=== PATIENT | male | born 1985 | race Caucasian/White ===

== ENCOUNTER → 2016-12-02 | Outpatient (CLI) | payer OTHER ==
--- NOTE | 2016-12-02 10:32 | RADIOLOGY REPORT (SQ) ---
EXAM DESCRIPTION: CHEST PA/LATERAL COMPLETED DATE/TIME: 12/02/2016 10:13 am REASON FOR STUDY: SHORTNESS OF BREATH COMPARISON: None. EXAM PARAMETERS: NUMBER OF VIEWS: two views TECHNIQUE: Digital Frontal and Lateral radiographic views of the chest acquired. RADIATION DOSE: NA LIMITATIONS: none FINDINGS: LUNGS AND PLEURA: No opacities, masses or pneumothorax. No pleural effusion. MEDIASTINUM AND HILAR STRUCTURES: No masses or contour abnormalities. HEART AND VASCULAR STRUCTURES: Heart normal size. No evidence for failure. BONES: No acute findings. HARDWARE: None in the chest. OTHER: No other significant finding. IMPRESSION: NO SIGNIFICANT RADIOGRAPHIC FINDING IN THE CHEST. TECHNICAL DOCUMENTATION: JOB ID: [id number] [employer] (formerly [employer])- All Rights Reserved
== END ==
LOC: OD 10:04
PROVIDERS: ATTEND Physician Assistant
DX: R06.02 Shortness of breath (principal)
CPT/HCPCS: 71020

== ENCOUNTER 2017-02-20 16:19 | Emergency (ER) | payer OTHER ==
[2017-02-20 16:29] VITALS: BP 135/94
[2017-02-20] MEDS ORDERED: TETRACAINE HCL 0.5% OPH SOLN 2 ML OD ONE (16:45)
[2017-02-20] MEDS ORDERED: KETOROLAC TROMETHAMINE 0.45% 4 DROP/0.4 ML DROPERETTE OD ONE (17:20)
--- NOTE | 2017-02-20 17:23 | ER Document Report ---
HPI - HPI Patient complains to provider of: right eye injury Onset: This morning Onset/Duration: Sudden Pain Level: 3 Context: 31 yo male got debis in right eye when working on ceiling tile at work today. No safety glasses. No contacts. Now hurts. Associated Symptoms: None Exacerbated by: Denies Relieved by: Denies Similar symptoms previously: No Recently seen / treated by doctor: No - ROS ROS below otherwise negative: Yes Systems Reviewed and Negative: Yes All other systems reviewed and negative - EENT EENT: REPORTS: Eye problems Past Medical History - General Information source: Patient - Social History Smoking Status: Never Smoker Chew tobacco use (# tins/day): No Frequency of alcohol use: None Drug Abuse: None Lives with: Family Family History: Reviewed & Not Pertinent Patient has suicidal ideation: No Patient has homicidal ideation: No - Medical History Medical History: Negative Renal/ Medical History: Denies: Hx Peritoneal Dialysis Surgical Hx: Negative Vertical Provider Document - CONSTITUTIONAL Agree With Documented VS: Yes Exam Limitations: No Limitations General Appearance: No Apparent Distress - INFECTION CONTROL TRAVEL OUTSIDE OF THE [place] IN LAST 30 DAYS: No - HEENT HEENT: Normocephalic Notes: No FB, anterior chamber clear, right corneal abrasion lateral to the pupil, tear shaped. - NECK Neck: Supple - RESPIRATORY O2 Sat by Pulse Oximetry: 100 - MUSCULOSKELETAL/EXTREMETIES Musculoskeletal/Extremeties: MAEW - NEURO Level of Consciousness: Awake, Alert - DERM Integumentary: Warm, Dry, No Rash Course - Re-evaluation Re-evalutation: 02/20/17 18:00 [facility] called, they do not have sulfacetamide, changed to polytrim 1 drop qid - Vital Signs Vital signs: Temp Pulse Resp BP Pulse Ox 98.2 F 82 16 135/94 H 100 02/20/17 16:27 02/20/17 16:27 02/20/17 16:27 02/20/17 16:27 02/20/17 16:27 Discharge - Discharge Clinical Impression: Right corneal abrasion Qualifiers: Encounter type: initial encounter Qualified Code(s): S05.01XA - Injury of conjunctiva and corneal abrasion without foreign body, right eye, initial encounter Condition: Good Disposition: HOME, SELF-CARE Instructions: Ketorolac Tromethamine Eye Drops ([facility]), Corneal Abrasion ([facility]), Sulfa Medications ([facility]) Additional Instructions: do not patch eye corneal abrasion should heal in 24 hours, see eye doctor if it does not to er any worsening today acular (ketorolac) 1 drop right eye every 8 hours for pain sulfacetamid eye drops, 2 drops right eye 4 times per day opthamology referral Please complete the patient satisfaction survey if you get one, and return it.. If you do not receive a survey, then you can go to the [facility] website, [email or web address] and place your comments about your very good care. Thank you very much. It was a pleasure being your medical provider today. Prescriptions: Sulfacetamide Sodium [Bleph-10] 2 drop OD QID #5 ml Referrals: EVARISTO MCGREGOR MD [ACTIVE STAFF] - Follow up as needed
== END 2017-02-20 17:20 | disposition home or self-care (01) ==
LOC: ER 16:19
DX: S05.01XA Injury of conjunctiva and corneal abrasion without foreign body, right eye, initial encounter (principal); X58.XXXA Exposure to other specified factors, initial encounter
CPT/HCPCS: 99283